=== PATIENT | female | born 1990 | race Caucasian/White ===

== ENCOUNTER 2017-02-08 18:41 | Emergency (ER) | payer OTHER ==
[~2017-02-08] VITALS: Ht 154.9 cm; Wt 65.0 kg
[2017-02-08 18:45] VITALS: BP 141/81; PULSE 96; RESP 22; TEMP 98.5; O2SAT 98
[2017-02-08] MEDS ORDERED: SODIUM CHLOR 0.9% 1000 ML INJ 1,000 ML IV SCH (19:32)
--- NOTE | 2017-02-08 19:37 | PD ---
HPI Chief Complaint: Back/ Neck Pain or Injury Time Seen by Provider: 19:37 Travel History International Travel<30 days: No Contact w/Intl Traveler<30days: No Traveled to known affect area: No History of Present Illness HPI 26-year-old female with a history of migraine headaches and hypothyroidism presents to the emergency department for evaluation of low back pain for 2 days. Patient states that she has felt some mild intermittent lower back pain over the past 1-2 weeks but "ignored it." States that 2 days ago the lower back pain became persistent and worsened severity. Denies any injury or trauma to her back. She does not perform any lifting or bending at work, she sits at a desk for 8 hours a day. The pain is aggravated with bending, walking, sitting. Alleviated with lying flat and still. She denies any numbness or tingling, weakness, saddle anesthesia, bowel or bladder incontinence, fever, chills, nausea, vomiting, abdominal pain, dysuria. States that she was seen at [facility] 3 times since 02/06/17 for the same complaint and had an x -ray and a urinalysis performed which were unremarkable. States she was given an injection of Norflex and prescribed Porter and Robaxin. States that she has taken these medications but that the Porter causes her to have nausea and dizziness. States that the Robaxin has helped her symptoms somewhat, states that she took a Fioricet for her migraine today which also helped her symptoms. She denies , last menstrual period 3 weeks ago. Denies IV drug use. No other complaints. PFSH Past Medical History Migraines: Yes Thyroid Disease: Yes ?: Not Social History Alcohol Use: No Tobacco Use: No Substance Use: No Allergies-Medications (Allergen,Severity, Reaction): Coded Allergies: No Known Allergies (Unverified , 02/08/17) Reported Meds & Prescriptions Reported Meds & Active Scripts Active Reported Methocarbamol 500 Mg Tab 500 Mg PO QID Porter (Hydrocodone-Acetaminophen) 5-325 mg Tab 1 Tab PO Q6H PRN Review of Systems Except as stated in HPI: all other systems reviewed are Neg Physical Exam Narrative GENERAL: Well-nourished and well-developed pleasant patient in no acute distress who is nontoxic appearing. SKIN: Warm and dry. HEAD: Normocephalic and atraumatic. EYES: No injection, drainage, or hyphema noted. PERRLA. EOMI. ENT: No nasal drainage noted. Oropharynx is clear. NECK: Supple and the trachea is midline. CARDIOVASCULAR: Regular rate and rhythm. RESPIRATORY: Breath sounds are equal bilaterally with no accessory muscle use, wheezing, rhonchi, or crackles. GASTROINTESTINAL: Abdomen is soft, non-tender, and nondistended. MUSCULOSKELETAL: No obvious deformities, swelling, cyanosis, or ecchymosis is present throughout the upper and lower extremities. Patient has full range of motion without any signs of neurovascular compromise. Strength 5/5 upper and lower extremities equal bilaterally. Pain aggravated and lower back with flexion and hips bilaterally. BACK: Tenderness to palpation over midline lumbar and sacrum. Tenderness to palpation over lumbar paraspinal muscles and bilateral upper buttocks. Nontender without any obvious deformities, bony point tenderness, or crepitus noted throughout the thoracic and lumbar vertebrae. NEUROLOGICAL: Awake, alert, and oriented. Normal speech and gait. Cranial nerves are grossly intact. Data Data Last Documented VS Vital Signs Date Time Temp Pulse Resp B/P Pulse Ox O2 Delivery O2 Flow Rate FiO2 02/08/17 18:45 98.5 96 22 141/81 98 Orders Basic Metabolic Panel (Bmp) (02/08/17 19:32) Complete Blood Count With Diff (02/08/17 19:32) Ct Abd/Pel W Iv Contrast(Rout) (02/08/17 19:32) Iv Access Insert/Monitor (02/08/17 19:32) Sodium Chlor 0.9% 1000 Ml Inj (Ns 1000 M (02/08/17 19:32) Sodium Chloride 0.9% Flush (Ns Flush) (02/08/17 19:45) Ed Urine Pregnancytest Poc (02/08/17 19:32) Ct Lumb Spine W/O Contrast (02/08/17 19:32) Iohexol 350 Inj (Omnipaque 350 Inj) (02/08/17 20:43) Labs Laboratory Tests Test 02/08/17 20:00 White Blood Count 10.6 TH/MM3 Red Blood Count 5.78 MIL/MM3 Hemoglobin 11.5 GM/DL Hematocrit 35.8 % Mean Corpuscular Volume 62.0 FL Mean Corpuscular Hemoglobin 19.9 PG Mean Corpuscular Hemoglobin 32.1 % Concent Red Cell Distribution Width 15.3 % Platelet Count 287 TH/MM3 Mean Platelet Volume 9.2 FL Neutrophils (%) (Auto) 63.1 % Lymphocytes (%) (Auto) 22.7 % Monocytes (%) (Auto) 8.4 % Eosinophils (%) (Auto) 4.4 % Basophils (%) (Auto) 1.4 % Neutrophils # (Auto) 6.7 TH/MM3 Lymphocytes # (Auto) 2.4 TH/MM3 Monocytes # (Auto) 0.9 TH/MM3 Eosinophils # (Auto) 0.5 TH/MM3 Basophils # (Auto) 0.1 TH/MM3 CBC Comment AUTO DIFF Sodium Level 139 MEQ/L Potassium Level 3.7 MEQ/L Chloride Level 104 MEQ/L Carbon Dioxide Level 28.0 MEQ/L Anion Gap 7 MEQ/L Blood Urea Nitrogen 11 MG/DL Creatinine 0.66 MG/DL Estimat Glomerular Filtration 108 ML/MIN Rate Random Glucose 73 MG/DL Calcium Level 8.7 MG/DL MDM Medical Decision Making Medical Screen Exam Complete: Yes Emergency Medical Condition: Yes Differential Diagnosis Muscle strain versus muscle spasm versus discogenic pain versus other Narrative Course 26-year-old female presents to the emergency department for evaluation of lower back pain for 2 days. Patient is afebrile, vital signs are stable. The patient 's pain is located mostly in the sacral region and also some in the lumbar region. No injury or trauma. She had an x-ray done at another hospital 2 days ago, she showed me the report which was unremarkable. I discussed with my attending physician and given the patient's symptoms she recommends CT of abdomen and pelvis with CT of the lumbar spine. CBC shows mild anemia but is otherwise unremarkable. BMP is unremarkable. The patient is signed out to my attending physician Dr. Antonio pending the results of her CT images. Madeleine Perez February 08, 2017 19:37
[2017-02-08] MEDS ORDERED: SODIUM CHLORIDE 0.9% FLUSH 10 ML FLUSH IV FLUSH PRN (19:45)
[2017-02-08] MEDS ORDERED: NORC5TAB PO (19:55)
[2017-02-08] MEDS ORDERED: METH500T3 PO (19:55)
[2017-02-08 20:24] LABS: AUTOMATED NEUTROPHIL # 6.7 TH/MM3 (1.8-7.7); BASOPHIL # 0.1 TH/MM3 (0-0.2); BASOPHIL % 1.4 % (0.0-2.0); EOSINOPHIL # 0.5 TH/MM3 (0-0.4); EOSINOPHIL % 4.4 % (0.0-4.0); HEMATOCRIT 35.8 % (35.0-46.0); LYMPH % 22.7 % (9.0-44.0); LYMPHOCYTE # 2.4 TH/MM3 (1.0-4.8); MEAN CORPUSCULAR HEMOGLOBIN 19.9 PG (27.0-34.0); MEAN CORPUSCULAR HGB CONC 32.1 % (32.0-36.0); MONO % 8.4 % (0.0-8.0); NEUT % 63.1 % (16.0-70.0); PLATELET COUNT 287 TH/MM3 (150-450); RED BLOOD COUNT 5.78 MIL/MM3 (4.00-5.30); RED CELL DISTRIBUTION WIDTH 15.3 % (11.6-17.2); WHITE BLOOD COUNT 10.6 TH/MM3 (4.0-11.0)
[2017-02-08 20:27] LABS: HEMO FLAGS AUTO DIFF
[2017-02-08] MEDS ORDERED: IOHEXOL 350 MG/ML 10 ML VIAL (for RAD DIAG) IV ONE (20:43)
[2017-02-08 20:47] LABS: POTASSIUM 3.7 MEQ/L (3.5-5.1)
--- NOTE | 2017-02-08 20:56 | RADRPT ---
EXAM DATE/TIME: 02/08/2017 20:37 [facility] COMPARISON: No previous studies available for comparison. INDICATIONS : Low back pain. IV CONTRAST: 90 cc Omnipaque 350 (iohexol) IV ORAL CONTRAST: No oral contrast ingested. RADIATION DOSE: 6.50 CTDIvol (mGy) MEDICAL HISTORY : None SURGICAL HISTORY : None. ENCOUNTER: Initial ACUITY: 1 day PAIN SCALE: 10/10 LOCATION: low back TECHNIQUE: Volumetric scanning of the abdomen and pelvis was performed. Using automated exposure control and ad justment of the mA and/or kV according to patient size, radiation dose was kept as low as reasonably achievable to obtain optimal diagnostic quality images. FINDINGS: LOWER LUNGS: The visualized lower lungs are clear. LIVER: Homogeneous density without lesion. There is no dilation of the biliary tree. No calcified gallston es. SPLEEN: Normal size without lesion. PANCREAS: Within normal limits. KIDNEYS: Normal in size and shape. There is no mass, stone or hydronephrosis. ADRENAL GLANDS: Within normal limits. VASCULAR: There is no aortic aneurysm. BOWEL/MESENTERY: The stomach, small bowel, and colon demonstrate no acute abnormality. There is no free intraperitone al air or fluid. ABDOMINAL WALL: Within normal limits. RETROPERITONEUM: There is no lymphadenopathy. BLADDER: No wall thickening or mass. REPRODUCTIVE: Small volume of free pelvic fluid. Uterus and adnexa are focally unremarkable. INGUINAL: There is no lymphadenopathy or hernia. MUSCULOSKELETAL: Within normal limits for patient age. CONCLUSION: Small volume of free pelvic fluid. Otherwise unremarkable CT appearance of the abdomen and pelvis. Braulio Khanna MD on February 08, 2017 at 20:50 Board Certified Radiologist. This report was verified electronically.
[2017-02-08 21:07] LABS: PLATELET ESTIMATE SMEAR NORMAL (NORMAL); PLATELET MORPHOLOGY NORMAL (NORMAL); SCAN/DIFF AUTO DIFF CONFIRMED
--- NOTE | 2017-02-08 21:24 | RADRPT ---
EXAM DATE/TIME: 02/08/2017 20:37 [facility] COMPARISON: CT ABDOMEN & PELVIS W CONTRAST, February 08, 2017, 20:37. INDICATIONS : Low back pain. RADIATION DOSE: ; Reconstructed from previous dataset MEDICAL HISTORY : None SURGICAL HISTORY : None. ENCOUNTER: Initial ACUITY: 1 day PAIN SCALE: 10/10 LOCATION: low back TECHNIQUE: Volumetric scanning of the lumbar spine was performed. Multiplanar reconstructions in the sagittal, coronal and oblique axial planes were performed. Using automated exposure control and adjustment of the mA and/or kV according to patient size, radiation dose was kept as low as reasonably achievable t o obtain optimal diagnostic quality images. FINDINGS: Lumbar spine alignment is satisfactory. There is no evidence of fracture. No bony canal or foraminal stenosis is identified. There is no evidence of paraspinal mass or hematoma. CONCLUSION: No evidence of acute bony process in the lumbosacral spine Braulio Khanna MD on February 08, 2017 at 21:20 Board Certified Radiologist. This report was verified electronically.
[2017-02-08] MEDS ORDERED: CYCLOBENZAPRINE HCL 10 MG TAB PO ONE (21:45)
[2017-02-08] MEDS ORDERED: KETOROLAC TROMETHAMINE 30 MG/ML (IVP) VIAL IV PUSH ONE (21:45)
--- NOTE | 2017-02-08 21:49 | PD ---
Physical Exam Narrative I, Dr. Antonio, have reviewed the advance practice practitioner's documentation and am in agreement, met with the patient face to face, made the diagnosis, and the medical decision making was done by me. *My assessment and Findings: Patient is a 26-year-old female comes in complaining of lower back pain. She says she has had the pain occasionally over the past 2 weeks, but it got much worse 2 days ago. She was seen at an outside hospital and was given pain medicine and had an x-ray done. She says she is concerned because she still continues to have severe pain. She says the [place] she was prescribed makes her nauseous and doesn't help with the pain. She did take a Fioricet this morning that seemed to help take the pain away. She denies any injury, but says she sits in a hard chair all day. Data Data Last Documented VS Vital Signs Date Time Temp Pulse Resp B/P Pulse Ox O2 Delivery O2 Flow Rate FiO2 02/08/17 18:45 98.5 96 22 141/81 98 Orders Basic Metabolic Panel (Bmp) (02/08/17 19:32) Complete Blood Count With Diff (02/08/17 19:32) Ct Abd/Pel W Iv Contrast(Rout) (02/08/17 19:32) Iv Access Insert/Monitor (02/08/17 19:32) Sodium Chlor 0.9% 1000 Ml Inj (Ns 1000 M (02/08/17 19:32) Sodium Chloride 0.9% Flush (Ns Flush) (02/08/17 19:45) Ed Urine Pregnancytest Poc (02/08/17 19:32) Ct Lumb Spine W/O Contrast (02/08/17 19:32) Iohexol 350 Inj (Omnipaque 350 Inj) (02/08/17 20:43) Ketorolac Inj (Toradol Inj) (02/08/17 21:45) Cyclobenzaprine (Flexeril) (02/08/17 21:45) Labs Laboratory Tests Test 02/08/17 20:00 White Blood Count 10.6 TH/MM3 Red Blood Count 5.78 MIL/MM3 Hemoglobin 11.5 GM/DL Hematocrit 35.8 % Mean Corpuscular Volume 62.0 FL Mean Corpuscular Hemoglobin 19.9 PG Mean Corpuscular Hemoglobin 32.1 % Concent Red Cell Distribution Width 15.3 % Platelet Count 287 TH/MM3 Mean Platelet Volume 9.2 FL Neutrophils (%) (Auto) 63.1 % Lymphocytes (%) (Auto) 22.7 % Monocytes (%) (Auto) 8.4 % Eosinophils (%) (Auto) 4.4 % Basophils (%) (Auto) 1.4 % Neutrophils # (Auto) 6.7 TH/MM3 Lymphocytes # (Auto) 2.4 TH/MM3 Monocytes # (Auto) 0.9 TH/MM3 Eosinophils # (Auto) 0.5 TH/MM3 Basophils # (Auto) 0.1 TH/MM3 CBC Comment AUTO DIFF Differential Comment AUTO DIFF CONFIRMED Platelet Estimate NORMAL Platelet Morphology Comment NORMAL Sodium Level 139 MEQ/L Potassium Level 3.7 MEQ/L Chloride Level 104 MEQ/L Carbon Dioxide Level 28.0 MEQ/L Anion Gap 7 MEQ/L Blood Urea Nitrogen 11 MG/DL Creatinine 0.66 MG/DL Estimat Glomerular Filtration 108 ML/MIN Rate Random Glucose 73 MG/DL Calcium Level 8.7 MG/DL [facility] Supervised Visit with BRODY: Yes Narrative Course Exam shows tenderness to the right sacroiliac area. There is no neurologic abnormalities. As this is the patient's fourth visit to the emergency department for these symptoms, decision made to obtain labs and the CAT scan. Labs show no acute abnormalities. CT of the abdomen and pelvis and the lumbar spine show no acute abnormalities. Patient advised she should take ibuprofen and muscle relaxers to relieve her pain. Advised she needs to stretch her back. Advised follow-up with her primary care doctor she may need some physical therapy in the future or further testing. Advised to return to the ED as needed for any worsening symptoms. Diagnosis Primary Impression: Back pain Qualified Code: M54.5 - Acute right-sided low back pain without sciatica Patient Instructions: Back Pain (ED), General Instructions Additional Instruction: Take Ibuprofen and muscle relaxers for pain. Follow up with your doctor. Return to the ED as needed for any worsening symptoms. Scripts Ondansetron Odt (Zofran Odt)4 Mg Tab4 Mg SL Q6HR PRN (Nausea/Vomiting) #10 TAB Ref 0 Prov:Samantha Antonio MD 02/08/17 Disposition: 01 DISCHARGE HOME Condition: Stable Samantha Antonio MD February 08, 2017 21:49
[2017-02-08] MEDS ORDERED: ZOFR4TAB3 SL (21:59)
[2017-02-08 22:00] VITALS: BP 139/84; PULSE 82; RESP 18; O2SAT 96
== END 2017-02-08 22:09 | disposition home or self-care (01) ==
LOC: NEPD 18:41
DX: M54.5 Low back pain (principal); E03.9 Hypothyroidism, unspecified; D64.9 Anemia, unspecified; X50.1XXA Overexertion from prolonged static or awkward postures, initial encounter; Y93.9 Activity, unspecified; Y92.9 Unspecified place or not applicable; Y99.0 Civilian activity done for income or pay
CPT/HCPCS: 72131; 74177; 80048; 84703; 85025; 96361; 96374; 99284; J1885; J7030; Q9967